=== PATIENT | male | born 1990 | race Caucasian/White ===

== ENCOUNTER 2020-12-02 20:52 | Emergency (ER) | payer BC, SELFPAY ==
[2020-12-02 21:00] VITALS: BP 104/62; PULSE 73; RESP 16; TEMP 36.8; O2SAT 96
--- NOTE | 2020-12-02 21:02 | W.ED.GENAD ---
Discharge Plan Disposition Patient Disposition: HOME Condition: Good Discharge Details Clinical Impression: Dog bite of hand Primary Care Provider: None,None ED Provider: Amanda Koehler Home Meds and New Rx's Prescriptions: New amoxicillin-pot clavulanate [Augmentin] 875-125 mg tablet 1 tab PO BID Qty: 10 RF: 0 Discharge Instructions Instructions: Amoxicillin/Clavulanate Potassium (By mouth), Animal Bite (ED) Additional Instructions: Keep wound clean dry. Please monitor because of infection including redness, warmth, drainage, increased pain, fever/chills. If you develop these other new/worsening symptoms seek care urgently once again. Please take the antibiotics as prescribed. Even if symptoms improve, please take the entire course. Tylenol and/or ibuprofen as needed for discomfort. Tetanus was updated today. Referral for local primary care has been sent. Discharge Data Discharge Date/Time-TO BE ENTERED AT DEPARTURE: 12/02/20 21:55 Medical Decision Making Patient is a pleasant [id number] 30-year-old male presents today with chief complaint of dog bite. Reports a prior to arrival his dog was fighting with another dog and he tried to break up. Was accidentally bitten by his own dog. He reports that his dog to date on vaccines. He does not know his own tetanus shot. Does not believe that it was within the last 5 years. Suffered a puncture wound to the MCP joint of the right index finger. No other lacerations. On exam, patient appears nontoxic. He has a 5 mm puncture wound to the dorsal aspect of the right hand over the second MCP joint. Patient has good range of motion of his digits and able to extend against resistance, no evidence of ligamentous injury.Elicited with palpation. Deep structures felt to be intact, no foreign body noted. Plan to obtain x-ray to evaluate for potential retained foreign body or fracture. Will update tetanus. We'll begin the patient on Augmentin Wound was copiously irrigated by nursing staff. Patient and I discussed wound care. Given that this appears to be puncture wound from bite, I am concerned that closure may increase his risk of infection. Advised this close through secondary intention. FINDINGS: Bones/joints: Osseous mineralization is normal. There are no inflammatory osseous erosive changes. There are no focal osseous lesions. The joint spaces are maintained without degenerative changes. There are no acute displaced fractures or subluxations. Soft tissues: No radiopaque foreign body is identified. IMPRESSION: 1. No radiopaque foreign body identified. 2. No radiographic evidence for acute osseous injury. Discussed findings with the patient. Care of wound discussed at length. He will continue on augmentin. He does not have a PCP but I have asked for care managemnt to arrange for local PCP and f/u. Strict return precautions were given, in particular signs of infection. Tetanus was pudated. All of his questions and concerns were addressed, he is in agreement with thisplan. HPI General Mode of arrival: ambulatory. Date/Time Provider Initiated Documentation: 12/02/20 21:02. Limitations to Documentation: no limitations. Information obtained by: patient and RN notes reviewed. History of Present Illness 30 year old M presents to the emergency department with the chief complaint of dog bite right hand, described as moderate, with intensity rated at 5. Quality is described as aching, and is localized to the right and upper extremity. Patient reports no radiation. Patient started experiencing this minute(s) and it has been constant. No relieving factors improve symptom(s), No exacerbating factors reported . Patient notes no other symptoms.. Patient did receive the following treatments prior to arrival, none Related Data Home Medications Medication Instructions Recorded Confirmed amoxicillin-pot clavulanate 1 tab PO BID #10 tab 12/02/20 [Augmentin] Previous Rx's Medication Instructions Recorded amoxicillin-pot clavulanate 1 tab PO BID #10 tab 12/02/20 [Augmentin] Allergies Allergy/AdvReac Type Severity Reaction Status Date / Time No Known Allergies Allergy Unverified 12/02/20 21:03 Review of Systems Constitutional Constitutional: Reports as per HPI, Denies chills and Denies fever(s) Musculoskeletal Musculoskeletal: Reports as per HPI Integumentary/Breasts Skin/Breast: Reports as per HPI Neurologic Neurologic: Reports as per HPI, Denies sensory deficit and Denies paresthesias [facility] Social History Smoking/Tobacco Use Status: Never Smoking risk assessment performed?: Yes Alcohol Intake: current Alcohol Intake frequency: holidays/special occasions only Substance use type: does not use Do you feel safe at home: Yes Exam Const General: cooperative, healthy appearing, comfortable, no acute distress and well developed Nutritional Appearance: average body habitus and well nourished Orientation: alert and awake Resp Effort & Inspection: normal respiratory effort, able to speak in complete sentences and no respiratory distress Cardio Rate: regular rate Rhythm: regular rhythm Skin Trauma: laceration (as drawn below) Neuro General: patient alert and patient awake Cognition: normal cognition Speech: speech normal Gait: normal gait Sensory Exam: no sensory deficits noted Extrem Hand/finger images: 1. 5mm puncture wound/ laceration over MCP joint into subQ tissue. No FB noted. Small amount of bleeding. No surrounding erythema, warmth, drainage. Able to extend against resistance. Ligamentously intact. Capillary refill intact. Psych Appearance: grossly normal and well kempt Mental Status: mental status grossly normal Speech and Movement: speech and movement normal
--- NOTE | 2020-12-02 21:15 | DI.RAD_ITS ---
Exam(s) XR HAND RT COMPLETE EXAM: XR HAND RT COMPLETE CLINICAL HISTORY: bite over 2nd MCP joint. TECHNIQUE: 2D digital imaging was performed. COMPARISON: No exams were available for comparison FINDINGS: BONES: No acute fracture is present. No bony destructive lesion is seen. JOINTS: No dislocation present. SOFT TISSUE: Normal. No radiopaque foreign body is identified. IMPRESSION: Unremarkable radiographs of the right hand. DATA REPOSITORY: RADIATION DOSE DELIVERED:
[2020-12-02] MEDS: Amoxicillin 875/Clav. 125 TAB PO ×2 (21:23→22:00)
--- NOTE | 2020-12-02 22:14 | DI.VRAD_ITS ---
PROCEDURE INFORMATION: Exam: XR Right Hand Exam date and time: 12/02/2020 9:17 PM Age: 30 years old Clinical indication: Injury or trauma; Hand; Right; Injury date: 12/02/20; Injury details: Dog bite over 2nd mcp joint TECHNIQUE: Imaging protocol: XR Right hand. Views: 3 or more views. COMPARISON: No relevant prior studies available. FINDINGS: Bones/joints: Osseous mineralization is normal. There are no inflammatory osseous erosive changes. There are no focal osseous lesions. The joint spaces are maintained without degenerative changes. There are no acute displaced fractures or subluxations. Soft tissues: No radiopaque foreign body is identified. IMPRESSION: 1. No radiopaque foreign body identified. 2. No radiographic evidence for acute osseous injury. Dictated and Authenticated by: Pito Graham MD. Ordering:SYBIL Patel MD
--- NOTE | 2020-12-03 21:39 | NUR.NOTE ---
referral to Care Management to establish pcp and 1wk f/u for animal bite.Nursing Note:
== END 2020-12-02 21:55 | disposition home or self-care (01) ==
PROVIDERS: Emergency Provider Physician Assistant
DX: S61.230A Puncture wound without foreign body of right index finger without damage to nail, initial encounter (principal); W54.0XXA Bitten by dog, initial encounter
CPT/HCPCS: 90471; 99283; 73130

== ENCOUNTER 2021-04-18 19:51 | Emergency (ER) | payer BC, SELFPAY ==
[2021-04-18 20:00] VITALS: BP 114/69; PULSE 68; RESP 18; TEMP 37.3; O2SAT 99
--- NOTE | 2021-04-18 20:00 | DI.RAD_ITS ---
Exam(s) XR SHOULDER RT COMPLETE 2+V EXAM: XR SHOULDER RT COMPLETE 2+V CLINICAL HISTORY: trauma, pain. TECHNIQUE: 2D digital imaging was performed. COMPARISON: No exams were available for comparison FINDINGS: Four views reveal no evidence of fracture or dislocation. No abnormal soft tissue calcifications. N o osseous lesions. No degenerative changes in the glenohumeral and AC joints. Bone density appears normal. IMPRESSION: DATA REPOSITORY: RADIATION DOSE DELIVERED:
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
[2021-04-18] MEDS: Ketorolac 30 MG/ML VIAL IM (20:18)
--- NOTE | 2021-04-18 21:02 | DI.VRAD_ITS ---
PROCEDURE INFORMATION: Exam: XR Right Shoulder Exam date and time: 04/18/2021 8:06 PM Age: 31 years old Clinical indication: Other: Right shoulder trauma/pain TECHNIQUE: Imaging protocol: XR Right shoulder. Views: 2 or more views. COMPARISON: No relevant prior studies available. FINDINGS: There is no evidence of fracture. The joint spaces are well maintained. There is no bony destruction. The AC joint and glenohumeral joint are unremarkable. IMPRESSION: 1. No evidence of fracture. 2. No acute bony abnormality. Dictated and Authenticated by: David Shultz MD. Ordering:DUTCH Dickson MD
== END 2021-04-18 21:15 | disposition home or self-care (01) ==
PROVIDERS: Emergency Provider Nurse Practitioner Acute Care; PCP Nurse Practitioner Adult Health
DX: S43.084A Other dislocation of right shoulder joint, initial encounter (principal); V19.9XXA Pedal cyclist (driver) (passenger) injured in unspecified traffic accident, initial encounter
CPT/HCPCS: 96372; 99284; 73030; 99283; J1885

== ENCOUNTER 2022-05-08 08:18 | Emergency (ER) | payer BC, SELFPAY ==
[2022-05-08 08:26] VITALS: BP 116/68; PULSE 55; RESP 18; TEMP 36.7; O2SAT 99
--- NOTE | 2022-05-08 08:30 | RT.EKG_ITS ---
APPROVED REPORT Exam: Resting ECG Reason for Exam: Chest pain Patient Location: E HR:57 bpm ECG Measurements Heart Rate 57 AXIS CA 182 P 71 QRSd 103 QRS 86 QT 426 T 69 QTc 415 Conclusion Sinus bradycardia...rate< 60
--- NOTE | 2022-05-08 08:45 | DI.RAD_ITS ---
Exam(s) XR CHEST 2V PA LATERAL EXAM: XR CHEST 2V PA LATERAL CLINICAL HISTORY: chest pain. TECHNIQUE: 2D digital imaging was performed. COMPARISON: No exams were available for comparison FINDINGS: 2 views: Heart size is normal. The mediastinum is not widened. Lungs are clear. No infiltrates nor pleural effusions. IMPRESSION: No acute pulmonary findings. DATA REPOSITORY: RADIATION DOSE DELIVERED:
--- NOTE | 2022-05-08 08:45 | DI.US_ITS ---
Exam(s) US LOWER EXTREMITY VENOUS RT EXAM: US LOWER EXTREMITY VENOUS RT CLINICAL HISTORY: right calf pain TECHNIQUE: Grayscale, color, and doppler imaging of the deep venous system of the right lower extrem ity was performed. COMPARISON: No exams were available for comparison FINDINGS: There is no evidence of intraluminal thrombus and there is normal compression and augmentation demons trated within the common femoral vein, femoral vein, and popliteal vein. In the ipsilateral calf the interrogated veins also exhibit normal compression/ augmentation properti es. The ipsilateral saphenofemoral junction is patent. IMPRESSION: 1. No evidence of DVT in the right lower extremity. DATA REPOSITORY:
--- NOTE | 2022-05-08 08:46 | ED.GENADUL_ITS ---
Discharge Plan Disposition Patient Disposition: HOME Condition: Stable Discharge Details Chief Complaint: Vascular Clinical Impression: Pain of right calf, Chest tightness Primary Care Provider: Taina Issa ED Provider: Naldo Henderson Home Meds and New Rx's Prescriptions: No Action No Known Home Meds Discharge Instructions Additional Instructions: Your utrasound, xray of your chest, ekg and blood work did not show concerning findings at this time. No blood clots or cysts were seen in the leg. It is most likely you had a strain of one of the calf muscles or possible overuse injury. if symptoms continue next week follow up with your primary care provider if you have severe worsening pain, difficulty breathing or feel more ill return to the emergency department Medical Decision Making 32 yo male who denies chronic medical problems comes in with right calf pain and chest tightness. He went to bed feeling well yesterday, did go on a long bike ride yesterday but had no falls or trauma and states he bikes frequently. He states he woke up and noticed discomfort in the right upper calf and then some a nterior chest tightness so came here. He denies smoking, doesn't drink alcohol excessively and no drug use. HE arrives stable and appears well. He has tenderness without swelling of the right upper calf, normal distal senastion and pulses and full rom of the leg. He has clear lungs, no murmurs, soft nontender abdomen. Given location of his pain in his calf will obtain u/s to evaluate for dvt and given the chest tightness obtain troponin and d dimer to screen for pe. labs, xray and u/s unremarkable. He feels better pain now gone. He states pain started around 7am so first troponin not quite at 3 hours from symptom onset, offered to repeat troponin even though his heart score is 0 but he declines to wait and has decision making capacity. Given no radiation of pain diaphoresis, n/v or dyspnea and had only mild tightness in the chest doubt nstemi or acs. HE understands to f/u with pcp if symptoms continue, return precautions given Differential Diagnosis Differential Diagnosis: dvt, bakery's cyst, pe, nstemi Imaging Data Radiologic Study: Attestation: I personally reviewed and interpreted this imaging study as follows: Imaging: X-Ray Radiologist's impression: no acute findings Radiologic Study #2: Attestation: I personally reviewed and interpreted this imaging study as follows: Imaging: Ultrasound Radiologist's impression: no acute findings, no dvt Lab Data Lab results reviewed: Yes I reviewed the patient's lab results. ECG Data Attestation: I personally reviewed and interpreted this ECG (s) as follows: Prior ECG tracings: not available for review Interpretation: sinus bradycardia, rate of 57, no acutes st t wave ischemic findings HPI General Mode of arrival: ambulatory . Date/Time Provider Initiated Documentation: 05/08/22 08:32 . Limitations to Documentation: no limitations . Information obtained by: patient . History of Present Illness 32 year old M presents to the emergency department with the chief complaint of right calf pain, described as moderate, Quality is described as aching, and is locali zed to the right and lower extremity. Patient reports no radiation. Patient started experiencing this hour(s) (3) and it has been constant. No relieving factors improve symptom(s), No exacerbating factors reported . Patient notes chest pain. Patient did receive the following treatments prior to arrival, none Related Data Home Medications Medication Instructions Recorded Confirmed Unknown [No Known Home Meds] 12/13/20 04/18/21 Allergies Allergy/AdvReac Type Severity Reaction Status Date / Time No Known Allergies Allergy Unverified 04/18/21 20:04 General Stated Complaint: Vascular MIGUELITO: 3 Review of Systems All systems reviewed & are unremarkable except as noted in HPI and below Constitutional Constitutional: Denies chills, Denies fever(s) and Denies weakness Eyes Eyes: Denies loss of vision Cardiovascular Cardiovascular: Denies dyspnea Respiratory Respiratory: Denies cough and Denies dyspnea Gastrointestinal Gastrointestinal: Denies abdominal pain, Denies nausea and Denies vomiting Neurologic Neurologic: Denies loss of vision and Denies weakness PFS All Active Problems (Updated 05/08/22 @ 10:12 by Naldo Henderson MD) Dislocated shoulder (Acute) Pain of right calf (Acute) Chest tightness (Acute) Dog bite of hand (Acute) Medical History (Updated 05/08/22 @ 10:12 by Naldo Henderson MD) No significant medical problems Surgical History (Updated 12/13/20 @ 16:10 by Taina Issa NP) H/O wisdom tooth extraction Family History (Updated 12/13/20 @ 16:09 by Taina Issa NP) Maternal Grandfather Prostate cancer Paternal Grandfather Heart disease Social History (Updated 12/13/20 @ 15:57 by Petra Dupree RN) Smoking/Tobacco Use Status: Never Smoking risk assessment performed?: Yes Alcohol Intake: current Alcohol Intake frequency: a few times a month Substance use type: does not use Adopted: No Caregiver/Support person: No Foster care: No Household members: significant other Housing: house Number of Children: 0 Communication Needs: None Education Level: college Do you need help understanding health information?: Never Pets and animals: Yes (2) Pets and animals: dog(s) Sexually active: Yes Do you think of yourself as: straight/heterosexual Current gender identity: male What is your relationship status?: living with partner Panel score (0-1 are the most socially isolated patients): 1 Duration: > 90 minutes/day Frequency: 3-4 times per week Special klaudia needs: No Seatbelt use: always Helmet use: Yes Drive intox or ride w/intox national dedicated truck driver: No Working smoke detector in home: Yes Fire extinguisher in home: Yes Carbon monox detector in home: Yes Do you feel safe at home: Yes Do you feel safe in your relationship?: Yes Victim of physical abuse: No Victim of emotional abuse: No Victim of sexual abuse: No Would you like helpful sources: No Exam Const General: no acute distress Orientation: alert [facility] Head: normal to inspection Ears: external ears normal General nose exam: external nose normal Mouth: moist mucous membranes Eyes General: appearance normal, both eyes and all related structures Neck Neck: normal visual inspection Resp Effort & Inspection: normal respiratory effort and able to speak in complete sentences Cardio Rate: regular rate Skin General skin exam: no rashes or lesions noted Neuro General: patient alert and patient oriented x3 Extrem General: normal to inspection, full ROM, capillary refill normal and calf tenderness on the right Psych Mental Status: mental status grossly normal Course Vital Signs Vital signs: Vital Signs Temperature 36.7 C 05/08/22 08:26 Pulse 55 L 05/08/22 08:26 Respiratory Rate 18 05/08/22 08:26 Blood Pressure 116/68 05/08/22 08:26 Pulse Oximetry 99 05/08/22 08:26 Temperature 36.7 C 05/08/22 08:26 Temperature Source Temporal Artery Scan 05/08/22 08:26 Pulse 55 L 05/08/22 08:26 Respiratory Rate 18 05/08/22 08:26 Respiratory Effort Non-Labored 05/08/22 08:35 Blood Pressure 116/68 05/08/22 08:26 Blood Pressure Position Sitting 05/08/22 08:26 Pulse Oximetry 99 05/08/22 08:26 Oxygen Delivery Method Room Air 05/08/22 08:26 Oxygen Flow Rate 0 05/08/22 08:26
[2022-05-08 08:54] VITALS: PULSE 75; RESP 2; O2SAT 98
[2022-05-08 08:54] LABS: Abs Immature Grans 0.01 10^3/uL (0.0-0.06); Absolute Basophil Count 0.04 10^3/uL (0.0-0.2); Absolute Eosinophil Count 0.05 10^3/uL (0.0-0.7); Absolute Lymphocyte Count 1.83 10^3/uL (1.2-3.4); Absolute Monocyte Count 0.39 10^3/uL (0.1-0.8); Absolute Neutrophil Count 2.08 10^3/uL (1.2-6.7); Basophils % 0.9; Eosinophils % 1.1; HCT 39.4 % (40.0-50.0); HGB 13.4 g/dL (13.5-17.5); Immature Grans % 0.2; Lymphocytes % 41.6; MCH 29.8 pg (27.0-33.0); MCV 88 fL (80-95); MPV 9.2 fL (8.0-11.0); Monocytes % 8.9; Neutrophils % 47.3; Platelet Count 195 10^3/uL (130-400); RDW 11.9 % (11.8-14.1); RDW-SD 38.5 fL
[2022-05-08 08:55] VITALS: BP 114/70; PULSE 59; PULSE 65; RESP 15; O2SAT 99
[2022-05-08 08:56] VITALS: RESP 15
[2022-05-08 09:26] LABS: D-Dimer 115 ng/mlFEU (<500)
[2022-05-08 09:31] LABS: ALT 24 U/L (16-63); AST 18 U/L (15-37); Albumin 4.2 g/dL (3.4-5.0); Alkaline Phosphatase 51 U/L (46-116); Anion Gap 6.3 mmol/L (3-11); BUN 23 mg/dL (7-18); Bilirubin, Total 0.6 mg/dL (0.2-1.0); CO2 30.7 mmol/L (21.0-32.0); Chloride 104 mmol/L (98-107); Estimated GFR 103.84 (mL/min/1.73m2); Glucose 95 mg/dL (74-106); Magnesium 2.1 mg/dL (1.8-2.4); Potassium 3.9 mmol/L (3.5-5.1); Sodium 141 mmol/L (136-145); Total Protein 7.1 g/dL (6.4-8.2); Troponin I < 50 ng/L (<or=60)
[2022-05-08 10:21] VITALS: BP 114/68; PULSE 61; RESP 15; O2SAT 98
== END 2022-05-08 10:20 | disposition home or self-care (01) ==
PROVIDERS: Emergency Provider Emergency Medicine; PCP Nurse Practitioner Adult Health
DX: M79.604 Pain in right leg (principal); R07.89 Other chest pain
CPT/HCPCS: 80053; 93005; 99284; 71046; 83735; 84484; 85025; 85379; 93010; 93971; 99282